=== PATIENT | female | born 1995 | race Caucasian/White ===

== ENCOUNTER 2017-11-14 09:24 | Emergency (ER) | payer OTHER ==
[2017-11-14] MEDS ORDERED: GASTROGRAFIN SOLUTION 30ML (Q9963) As Ordered (10:14)
[2017-11-14] MEDS: ONDANSETRON 4MG/2ML VIAL (J2405) IV (10:20)
[2017-11-14] MEDS: MORPHINE 2 MG/ML 1ML SYRINGE IV (10:20)
[2017-11-14] MEDS: NS 500 ML IV (10:21)
[2017-11-14] MEDS: GASTROGRAFIN SOLUTION 30ML PO (10:25)
[2017-11-14 10:28] LABS: BASO % 0.3 % (0.0-1.0); EOS # 0.2 10^3/uL (0.0-0.50); EOS % 2.5 % (0.0-3.0); IMMATURE GRANULOCYTE % 0.3 % (0-0); LYMPH # 1.2 10^3/uL (1.5-6.5); LYMPH % 19.9 % (24.0-44.0); MEAN CORPUSCULAR HEMOGLOBIN 28.6 pg (27.0-33.0); MEAN CORPUSCULAR HGB CONC 32.6 g/dl (32.0-36.5); MEAN CORPUSCULAR VOLUME 87.7 fl (80.0-96.0); MONO # 0.6 10^3/uL (0.0-0.8); MONO % 10.2 % (0.0-5.0); NEUTROPHILS # 4.1 10^3/uL (1.8-7.7); NEUTROPHILS % 66.8 % (36.0-66.0); PLATELET COUNT, AUTOMATED 256 10^3/uL (150-450); RED CELL DISTRIBUTION WIDTH 12.8 % (11.5-14.5); WHITE BLOOD COUNT 6.1 10^3/uL (4.0-10.0)
[2017-11-14] MEDS: GASTROGRAFIN SOLUTION 30ML (Q9963) PO (10:55)
[2017-11-14 11:01] LABS: ALBUMIN 3.7 GM/DL (3.2-5.2); ALBUMIN/GLOBULIN RATIO 1.06 (1.00-1.93); ALKALINE PHOSPHATASE 66 U/L (45-117); ALT/SGPT 23 U/L (12-78); ANION GAP 7 MEQ/L (8-16); AST/SGOT 18 U/L (7-37); BILIRUBIN,DIRECT < 0.1 MG/DL (0.0-0.2); BILIRUBIN,TOTAL 0.2 MG/DL (0.2-1.0); BLOOD UREA NITROGEN 10 MG/DL (7-18); CALCIUM LEVEL 8.4 MG/DL (8.5-10.1); CARBON DIOXIDE LEVEL 26 MEQ/L (21-32); CHLORIDE LEVEL 107 MEQ/L (98-107); CREATININE FOR GFR 0.55 MG/DL (0.55-1.02); GLUCOSE, FASTING 99 MG/DL (70-105); SODIUM LEVEL 140 MEQ/L (136-145); TOTAL PROTEIN 7.2 GM/DL (6.4-8.2)
[2017-11-14] MEDS ORDERED: ISOVUE-370 76% 100ML VIAL (Q9967) As Ordered (11:34)
== END 2017-11-14 12:48 | disposition home or self-care (01) ==
LOC: M ED 09:24
DX: R10.31 Right lower quadrant pain (principal); R11.0 Nausea; N92.6 Irregular menstruation, unspecified; Z79.3 Long term (current) use of hormonal contraceptives
CPT/HCPCS: Q9963

== ENCOUNTER → 2019-02-10 | Outpatient (CLI) | payer OTHER ==
[~2019-02-10] MED LIST: ZOFR4TAB14 PO; [UNRECOGNIZED DRUG - CODE]
== END ==
LOC: M LAB 11:37
PROVIDERS: ATTEND Advanced Practice Midwife
DX: Z12.4 Encounter for screening for malignant neoplasm of cervix (principal); N91.1 Secondary amenorrhea

== ENCOUNTER → 2019-02-17 | Outpatient (CLI) | payer OTHER | LOC: M LAB 11:41 | PROVIDERS: ATTEND Advanced Practice Midwife | DX: O02.1 Missed abortion (principal) ==

== ENCOUNTER 2019-02-18 11:26 | Day surgery (SDC) | payer OTHER ==
[~2019-02-18] VITALS: Ht 165.1 cm; Wt 119.7 kg
[2019-02-18 11:47] LABS: HEMATOCRIT 40.4 % (36.0-47.0); HEMOGLOBIN 13.2 g/dl (12.0-15.5); MEAN CORPUSCULAR HEMOGLOBIN 29.1 pg (27.0-33.0); MEAN CORPUSCULAR HGB CONC 32.7 g/dl (32.0-36.5); PLATELET COUNT, AUTOMATED 273 10^3/uL (150-450); RED BLOOD COUNT 4.54 10^6/uL (4.00-5.40); WHITE BLOOD COUNT 6.9 10^3/uL (4.0-10.0)
[2019-02-18] MEDS ORDERED: LIDOCAINE 1% SDV INJ 30 ML VIAL As Ordered ONE (13:03)
[2019-02-18] MEDS ORDERED: MIDAZOLAM INJ 2 MG/2 ML VIAL (J2250) As Ordered ONE (13:05)
[2019-02-18] MEDS ORDERED: PROPOFOL 200 MG/20 ML VIAL As Ordered ONE ×2 (13:05→13:50)
[2019-02-18] MEDS ORDERED: ONDANSETRON 4MG/2ML VIAL (J2405) As Ordered ONE (13:05)
[2019-02-18] MEDS ORDERED: dexameTHASONE 4 MG/ML 1ML VIAL (J1100) As Ordered ONE (13:05)
[2019-02-18] MEDS ORDERED: fentaNYL 100 MCG/2 ML INJECTION (J3010) As Ordered ONE (13:05)
[2019-02-18] MEDS ORDERED: LIDOCAINE 2% INJ 100 MG/5 ML SDV (FOR ANES.) As Ordered ONE (13:05)
[2019-02-18] MEDS ORDERED: KETOROLAC 60 MG/2 ML VIAL (J1885) As Ordered ONE (13:45)
[2019-02-18 14:25] VITALS: BP 120/74
[2019-02-18] MEDS ORDERED: NORCO, ANEXSIA 5/325MG TABLET (HYDROcodone/ACETAMINOPHEN) As Ordered ONE (14:44)
[2019-02-18] MEDS ORDERED: LR 1,000 ML IV SCH ×2 (15:00→15:30)
[2019-02-18] MEDS ORDERED: NORCO, ANEXSIA 5/325MG TABLET (HYDROcodone/ACETAMINOPHEN) PO PRN (15:00)
[2019-02-18] MEDS ORDERED: fentaNYL 100 MCG/2 ML INJECTION (J3010) IV PRN (15:00)
[2019-02-18] MEDS ORDERED: ONDANSETRON 4MG/2ML VIAL (J2405) IV PRN (15:00)
[2019-02-18] MEDS ORDERED: ACETAMINOPHEN 500 MG TAB As Ordered ONE (15:21)
[2019-02-18] MEDS ORDERED: DOXYCYCLINE HYCLATE 100 MG TAB As Ordered ONE (15:21)
[2019-02-18] MEDS ORDERED: DOXYCYCLINE HYCLATE 100 MG TAB PO ONE (15:30)
[2019-02-18] MEDS ORDERED: ACETAMINOPHEN 500 MG TAB PO ONE (15:30)
--- NOTE | 2019-02-19 10:21 | RO ---
DATE OF OPERATION: 02/18/2019 PREOPERATIVE DIAGNOSIS: Embryonic demise. POSTOPERATIVE DIAGNOSIS: Embryonic demise. PROCEDURE: Suction dilation, evacuation, and curettage (D, E, and C). SURGEON: Devendra Daugherty MD FACULTY NEUROPSYCHOLOGIST: ANESTHESIA: Local with sedation. ESTIMATED BLOOD LOSS: Minimal. URINE OUTPUT: FINDINGS: Moderate amount of products of conception. DESCRIPTION OF PROCEDURE: Operative summary: The patient taken to the operating room, where intravenous (IV) sedation was given. She was prepped and draped in sterile fashion in the dorsal lithotomy position. A speculum was placed in the vagina. The anterior lip of the cervix was grasped with a tenaculum. The cervix was injected circumferentially with 16 mL of 1% lidocaine. The cervix was dilated with taper dilators. A #8-mm suction curette was placed through the internal os. The suction device was activated, and the curette was gently rotated until products of conception were noted coming through the suction tubing. Sharp curettage was performed. The uterine cavity was deemed to be empty. All instruments were removed. Sponge and instrument counts were correct.
--- NOTE | 2019-02-20 13:38 | RO ---
DATE OF PROCEDURE: 02/18/2019 PREOPERATIVE DIAGNOSIS: Embryonic demise. POSTOPERATIVE DIAGNOSIS: Embryonic demise. PROCEDURE: Dilation, evacuation, and curettage (D, E and C). SURGEON: Dr. Devendra Daugherty POLICE LIEUTENANT: ANESTHESIA: Local with sedation. ESTIMATED BLOOD LOSS: Minimal. FINDINGS: Moderate amount of products of conception. OPERATIVE SUMMARY: The patient was taken to the operating room where IV sedation was given. She was prepped and draped in a sterile fashion in dorsal lithotomy position. A speculum was placed in the vagina. The anterior lip of the cervix was grasped with a tenaculum. Cervix was injected circumferentially with a total of 16 mL of 1% lidocaine. The cervix was dilated with tapered dilators. A #8 mm suction curette was placed through the internal os. The suction device was activated, the curette was gently rotated until products of conception were noted coming through the suction tubing. Sharp curettage was performed. Good hemostasis was noted. All instruments were removed. Sponge and instrument counts were correct.
== END 2019-02-18 15:45 | disposition home or self-care (01) ==
LOC: M SDC 11:26
PROVIDERS: ATTEND Specialist
DX: O02.1 Missed abortion (principal); Z88.0 Allergy status to penicillin; Z88.1 Allergy status to other antibiotic agents; Z88.2 Allergy status to sulfonamides
CPT/HCPCS: 36415; 59820; 85027; 86850; 86900; 86901; 88305; J1100; J1885; J2250; J2405; J3010

== ENCOUNTER → 2019-04-22 | Outpatient (REF) | payer OTHER | LOC: M LAB REF 10:59 | PROVIDERS: ATTEND Physician Assistant | DX: N39.0 Urinary tract infection, site not specified (principal) ==

== ENCOUNTER → 2019-05-09 | Outpatient (CLI) | payer OTHER | LOC: M LAB 09:08 | PROVIDERS: ATTEND Advanced Practice Midwife | DX: N91.2 Amenorrhea, unspecified (principal) ==

== ENCOUNTER → 2019-05-11 | Outpatient (CLI) | payer OTHER | LOC: M LAB 08:35 | PROVIDERS: ATTEND Advanced Practice Midwife | DX: N91.2 Amenorrhea, unspecified (principal) ==

== ENCOUNTER → 2019-05-26 | Outpatient (CLI) | payer OTHER ==
[2019-05-26 09:42] LABS: BASO % 0.3 % (0.0-1.0); EOS # 0.1 10^3/uL (0.0-0.50); EOS % 0.8 % (0.0-3.0); HEMATOCRIT 38.2 % (36.0-47.0); HEMOGLOBIN 12.7 g/dl (12.0-15.5); LYMPH # 1.6 10^3/uL (1.5-6.5); LYMPH % 21.2 % (24.0-44.0); MEAN CORPUSCULAR HEMOGLOBIN 29.3 pg (27.0-33.0); MEAN CORPUSCULAR HGB CONC 33.2 g/dl (32.0-36.5); MEAN CORPUSCULAR VOLUME 88.2 fl (80.0-96.0); MONO # 0.5 10^3/uL (0.0-0.8); MONO % 6.2 % (0.0-5.0); NEUTROPHILS # 5.5 10^3/uL (1.8-7.7); PLATELET COUNT, AUTOMATED 247 10^3/uL (150-450); RED BLOOD COUNT 4.33 10^6/uL (4.00-5.40); WHITE BLOOD COUNT 7.7 10^3/uL (4.0-10.0)
[2019-05-26 11:12] LABS: CHLAMYDIA DNA AMPLIFICATION NEGATIVE (NEGATIVE); GC DNA AMPLIFICATION NEGATIVE (NEGATIVE)
[2019-05-27 11:36] LABS: HEPATITIS C VIRUS ABY INDEX 0.1 INDEX (<0.8); HIV 1&2 SCREEN CENTAUR NEGATIVE (NEGATIVE); RUBELLA IgG QUALITATIVE IMMUNE (IMMUNE)
== END ==
LOC: M LAB 08:39
PROVIDERS: ATTEND Advanced Practice Midwife
DX: Z36.89 Encounter for other specified antenatal screening (principal); Z3A.08 8 weeks gestation of pregnancy

== ENCOUNTER → 2019-06-03 | Outpatient (REF) | payer OTHER | LOC: M LAB REF 12:19 | PROVIDERS: ATTEND Physician Assistant | DX: N39.0 Urinary tract infection, site not specified (principal) ==

== ENCOUNTER → 2019-07-09 | Outpatient (CLI) | payer OTHER | LOC: M LAB 10:45 | PROVIDERS: ATTEND Advanced Practice Midwife | DX: Z34.81 Encounter for supervision of other normal pregnancy, first trimester (principal); Z3A.00 Weeks of gestation of pregnancy not specified ==

== ENCOUNTER → 2019-07-22 | Outpatient (CLI) | payer OTHER ==
--- NOTE | 2019-07-23 09:15 | REP ---
Clinical: Anatomical evaluation. Comparison: None . Findings: Examination demonstrates a single live intrauterine in breech presentation. motion is identified by technologist. Placenta is noted posterior and grade zero with evidence for placenta previa. Amniotic fluid volume is normal. Cervix measures 3.9 cm in length and appears closed. No evidence for nuchal cord. Gestational age by LMP 17 weeks 6 days with [facility] 12/24/2019 . Gestational age by current measurements 18 weeks 2-day with [facility] 12/21/2019 . FHR equals 156 beats per minute. BPD 3.8 cm 17 weeks 3 day HC 14.9 cm 18 weeks 0 days AC 12.9 cm 18 weeks 3 day FL 2.8 cm 18 weeks 3 days HL 2.7 cm 18 weeks 6 days HC/AC ratio 1.15 Estimated weight 235 grams ( 64th percentile). Anatomical assessment demonstrates normal structures including cranium, choroid plexus, cavum, cerebellum/posterior fossa, diaphragm, stomach, three-vessel cord, kidneys/bladder, spine, and extremities. Limited evaluation of the facial features, lungs, heart/ventricular outflow tract, and cord insertion site. Impression: 1. Posterior placenta with placenta previa. 2. Anatomical limitations as noted above warrant reevaluation and follow-up. Electronically Signed by Luther Reyez MD 07/23/2019 09:07 A
== END ==
LOC: M RAD 12:58
PROVIDERS: ATTEND Advanced Practice Midwife
DX: Z34.82 Encounter for supervision of other normal pregnancy, second trimester (principal); Z3A.18 18 weeks gestation of pregnancy

== ENCOUNTER → 2019-08-19 | Outpatient (CLI) | payer OTHER ==
--- NOTE | 2019-08-20 02:43 | REP ---
Clinical: Anatomical evaluation. Comparison: 07/22/2019 . Findings: Examination demonstrates a single live intrauterine in cephalic presentation. motion is identified by technologist. Placenta is noted posterior and grade zero with evidence for placenta previa covering the closed internal os. Amniotic fluid volume is normal. Cervix measures 4.2 cm in length and appears closed. No evidence for nuchal cord. Gestational age by LMP 22 weeks 1 day with [facility] 12/22/2019 . Gestational age by current measurements 22 weeks 0 days with [facility] 12/23/2019 FHR equals the 150 beats per minute. Estimated weight 475 grams ( 45th percentile). Anatomical assessment demonstrates normal structures including cranium, choroid plexus, cavum, cerebellum/posterior fossa, facial features, lungs, diaphragm, stomach, cord insertion/three-vessel cord, kidneys/bladder, spine, and extremities. Incomplete evaluation of the heart and cardiac ventricular outflow tracts. Echogenic focus within the left cardiac ventricle likely prominent chordae tendineae. Impression: 1. Single live intrauterine in cephalic presentation demonstrating appropriate interval growth. 2. Posterior placenta with placenta previa. Cervix measures 4.2 cm in length and appears closed. 3. Anatomical limitations as noted above. Electronically Signed by Luther Reyez MD 08/20/2019 02:34 A
== END ==
LOC: M RAD 12:45
PROVIDERS: ATTEND Advanced Practice Midwife
DX: O09.212 Supervision of pregnancy with history of pre-term labor, second trimester (principal); Z3A.22 22 weeks gestation of pregnancy; O44.02 Complete placenta previa NOS or without hemorrhage, second trimester

== ENCOUNTER → 2019-09-17 | Outpatient (CLI) | payer OTHER ==
--- NOTE | 2019-09-18 14:01 | REP ---
Clinical: Anatomical evaluation. Comparison: 08/19/2019 . Findings: Examination demonstrates a single live intrauterine in cephalic presentation. motion is identified by technologist. Placenta is noted posterior and low-lying approximately 5 mm from the closed internal os without evidence for abruption. Placenta is grade 0. Amniotic fluid volume is normal. Cervix measures 3.7 cm in length and appears closed. No evidence for nuchal cord. Gestational age by LMP 26 weeks 2 days with [facility] 12/22/2019 . Gestational age by current measurements 26 weeks 6 days with [facility] 12/18/2019 . FHR equals 153 beats per minute. Estimated weight 966 grams ( 52nd percentile). Anatomical assessment demonstrates normal structures including cranium, choroid plexus, cavum, facial features, lungs, four-chamber heart/ventricular outflow tracts, diaphragm, stomach, cord insertion/three-vessel cord, kidneys/bladder, spine, and extremities. Impression: 1. Single live intrauterine in cephalic presentation demonstrating appropriate interval growth. 2. Low-lying grade zero placenta 5 mm from the closed internal os. 3. In conjunction with prior examination anatomical assessment is complete and normal. Electronically Signed by Luther Reyez MD 09/18/2019 01:52 P
== END ==
LOC: M RAD 11:50
PROVIDERS: ATTEND Advanced Practice Midwife
DX: Z34.82 Encounter for supervision of other normal pregnancy, second trimester (principal)

== ENCOUNTER → 2019-10-05 | Outpatient (CLI) | payer OTHER ==
[2019-10-05 12:13] LABS: HEMATOCRIT 34.2 % (36.0-47.0); HEMOGLOBIN 10.8 g/dl (12.0-15.5); MEAN CORPUSCULAR HEMOGLOBIN 28.3 pg (27.0-33.0); MEAN CORPUSCULAR HGB CONC 31.6 g/dl (32.0-36.5); MEAN CORPUSCULAR VOLUME 89.5 fl (80.0-96.0); PLATELET COUNT, AUTOMATED 249 10^3/uL (150-450); RED BLOOD COUNT 3.82 10^6/uL (4.00-5.40); WHITE BLOOD COUNT 9.8 10^3/uL (4.0-10.0)
== END ==
LOC: M LAB 09:30
PROVIDERS: ATTEND Advanced Practice Midwife
DX: O99.212 Obesity complicating pregnancy, second trimester (principal)

== ENCOUNTER → 2019-11-06 | Outpatient (CLI) | payer OTHER ==
--- NOTE | 2019-11-06 12:34 | REP ---
OB ULTRASOUND: Real-time sonographic evaluation of the gravid uterus performed. Transabdominal and endovaginal technique is utilized. There is a single intrauterine gestation with an estimated gestational age 3 weeks 3 days, EDC 12/22/2019. Today's measurements indicate appropriate growth. Biometry and Growth: BPD 81 mm = 32 weeks 4 days, 39th percentile HC 295 mm = 32 weeks 4 days, 38th percentile AC 288 mm = 32 weeks 6 days, 44th percentile FL 65 mm = 33 weeks 5 days, 55th percentile HC/AC ratio 1.03 within normal range. Estimated weight 2102 grams 38th percentile. anatomy today includes stomach, three-vessel cord, kidneys and spine and bladder, which are all grossly unremarkable. Cervical length: Closed and measures 3.7 cm in length. heart rate: 141 beats per minute. position: Vertex. Placenta: Posterior and grade 1-2 with no previa or abruption. The placenta appears to lie approximately 2.2 cm from the internal cervical os. Amniotic fluid: Within normal limits EDNA 10.5 within normal range of 8.2 to 24.6. S/D ratio: 22 within normal range of 2.0 to 3.0. RI: 0.65 within normal range of 0.59 to 0.75. Electronically Signed by Sy Aparicio MD 11/09/2019 04:11 P
== END ==
LOC: M RAD 09:00
PROVIDERS: ATTEND Advanced Practice Midwife
DX: O44.43 Low lying placenta NOS or without hemorrhage, third trimester (principal)

== ENCOUNTER → 2019-12-01 | Outpatient (REF) | payer OTHER | LOC: M SFHCWAGY 12:50 | PROVIDERS: ATTEND Advanced Practice Midwife | DX: Z34.93 Encounter for supervision of normal pregnancy, unspecified, third trimester (principal) ==

== ENCOUNTER 2019-12-29 08:29 | Inpatient (IN) | payer OTHER ==
[2019-12-29] VITALS (19 sets, daily range): BP systolic 95–139; BP diastolic 50–87
[~2019-12-29] VITALS: Ht 165.1 cm; Wt 124.1 kg
[2019-12-29] MEDS ORDERED: PRENTAB9 PO (08:50)
[2019-12-29] MEDS ORDERED: LACTATED RINGER'S 1000 ML IV STA (09:27)
[2019-12-29] MEDS: LR 1,000 ML IV SCH ×2 (09:27→17:27)
[2019-12-29 09:56] LABS: HEMATOCRIT 37.5 % (36.0-47.0); HEMOGLOBIN 11.8 g/dl (12.0-15.5); MEAN CORPUSCULAR HEMOGLOBIN 26.9 pg (27.0-33.0); MEAN CORPUSCULAR HGB CONC 31.5 g/dl (32.0-36.5); MEAN CORPUSCULAR VOLUME 85.6 fl (80.0-96.0); PLATELET COUNT, AUTOMATED 229 10^3/uL (150-450); RED BLOOD COUNT 4.38 10^6/uL (4.00-5.40); WHITE BLOOD COUNT 10.6 10^3/uL (4.0-10.0)
[2019-12-29] MEDS: miSOPROStol 50 MCG 1/2 TAB (S0191) SL SCH ×3 (10:01→18:00)
[2019-12-29] MEDS ORDERED: SLF 3 ML SYR IV PRN (14:15)
[2019-12-29] MEDS: SLF 3 ML SYR IV SCH (14:44)
[2019-12-29] MEDS ORDERED: OXYTOCIN DRIP 30 UNITS in IV 1 EA IV SCH (18:45)
[2019-12-29] MEDS ORDERED: PROMETHAZINE INJ 25 MG/ML VIAL (J2550) IV ONE (19:15)
[2019-12-29] MEDS ORDERED: BUTORPHANOL 2 MG/ML INJ (J0595) IV ONE (19:15)
[2019-12-30] VITALS (59 sets, daily range): BP systolic 88–175; BP diastolic 50–87
[2019-12-30] MEDS ORDERED: PROMETHAZINE INJ 25 MG/ML VIAL (J2550) IV ONE (01:00)
[2019-12-30] MEDS ORDERED: BUTORPHANOL 2 MG/ML INJ (J0595) IV ONE (01:00)
[2019-12-30] MEDS: LR 1,000 ML IV SCH ×6 (01:27→19:00)
[2019-12-30] MEDS: SLF 3 ML SYR IV SCH (06:00)
[2019-12-30] MEDS ORDERED: FENTANYL 2MCG/ML ROPIVACAINE 0.2% IN 0.9% NACL 100ML IVBAG As Ordered ONE (08:39)
[2019-12-30] MEDS ORDERED: diphenhydrAMINE INJ 50MG/ML VIAL (J1200) IV PRN ×2 (10:45→19:00)
[2019-12-30] MEDS ORDERED: EPIDURAL COMMENT XX SCH (10:45)
[2019-12-30] MEDS ORDERED: FENTANYL/ROPIVACAINE/NACL BAG 100 ML EPIDURAL SCH (10:45)
[2019-12-30] MEDS ORDERED: ONDANSETRON 4MG/2ML VIAL (J2405) IV PRN ×5 (10:45→19:00)
[2019-12-30] MEDS ORDERED: REFRIGERATOR IV KEYS XX PRN (10:45)
[2019-12-30] MEDS ORDERED: NALOXONE INJ 0.4 MG/1 ML VIAL (J2310) IV PRN ×3 (10:45→19:00)
[2019-12-30] MEDS ORDERED: EPIDURAL/PCA KEYS XX PRN (10:45)
--- NOTE | 2019-12-30 10:47 | IPNPDOC ---
Obstetrical Progress Note Date of Service Dec 30, 2019 Subjective Patient reports she is comfortable with her epidural. Objective Vital Signs Date Time Temp Pulse Resp B/P (MAP) Pulse Ox O2 Delivery O2 Flow Rate FiO2 12/30/19 06:30 98.2 107 130/60 (83) 98.2 12/30/19 02:19 15 Assessment Heart Rate (FHR): 140 Variability: Moderate Accelerations: Positive Decelerations: Variable Heart Rate Tracing: Category II Tocometer Contractions: Yes Frequency: regular, other (every 2 to 3 minutes) Strength: palpated as moderate Sterile Vaginal Examination Dilation: 5 cm (5-6 cm) Effacement (%): 80% Station: 0 Cervical Consistency: Soft Cervical Position: Anterior Postion/Presentation: Cephalic presentation Assessment and Plan Age: 24 : 2 Term: 0 Pre-term: 0 Abortions: 0 Livin EGA at Admission: 41 Weeks & Days 41.1 Status: Reassuring Group B Streptococcus: Negative Additional Comments IV Pitocin at 12 mu/min. FSE and IUPC inserted due to difficulty with monitoring patient. Consider decreasing IV Pitocin if variables continue. Variables are not deep. Patient spontaneously ruptured to a large amount of clear fluid prior to epidural. KRISTY MACDONALD CNM Dec 30, 2019 10:47
[2019-12-30] MEDS: LACTATED RINGER'S 1000 ML IV PRN ×2 (10:49→11:48)
[2019-12-30] MEDS: ePHEDrine SULFATE 25 MG/5 ML(5MG/ML) SYRINGE IV PRN ×3 (10:57→11:06)
[2019-12-30] MEDS ORDERED: ePHEDrine SULFATE 25 MG/5 ML(5MG/ML) SYRINGE IV PRN (12:00)
[2019-12-30] MEDS ORDERED: AZITHROMYCIN INJ 500 MG, VIAL MATE ADAPTER 1 EACH in D5W 250 ML IV ONE (16:30)
--- NOTE | 2019-12-30 16:30 | IPNPDOC ---
Obstetrical Progress Note Date of Service Dec 30, 2019 Subjective Patient is comfortable with her epidural. Objective Vital Signs Date Time Temp Pulse Resp B/P (MAP) Pulse Ox O2 Delivery O2 Flow Rate FiO2 12/30/19 13:59 81 18 112/53 (72) 12/30/19 11:49 97.7 Assessment Heart Rate (FHR): 140 Variability: Moderate Accelerations: Positive Decelerations: Early, Variable Heart Rate Tracing: Category II Tocometer Frequency: regular, other (2 to 4 minutes) Sterile Vaginal Examination Dilation: 5 cm (5-6) Effacement (%): 90% Cervical Position: Anterior Postion/Presentation: Cephalic presentation Assessment and Plan Weeks & Days 41.1 weeks today Status: Reassuring Group B Streptococcus: Negative Anticipate: Section Additional Comments Reviewed with patient that she is not having adequate contractions despite being on 20 mu/min for several hours with an IUPC in place. She has made minimal to no cervical change in over 6 hours. Reviewed options with patient including proceeding to section or continue with induction. Reviewed risk, benefits and alternatives with patient. She and her family desire to proceed with section. Dr. Daugherty notified and will be over for section. KRISTY MACDONALD CNM Dec 30, 2019 16:30
[2019-12-30] MEDS ORDERED: BICITRA 30ML SOLN UDC As Ordered ONE (16:43)
[2019-12-30] MEDS ORDERED: CLINDAMYCIN 300 MG in IV 1 EA IV ONE (17:00)
[2019-12-30] MEDS ORDERED: GENTAMICIN 100 MG in IV 1 EA IV ONE (17:00)
[2019-12-30] MEDS ORDERED: OXYC1TAB23 PO (17:13)
[2019-12-30] MEDS ORDERED: LIDOCAINE 2% W/EPIN INJ 20ML **PRES FREE As Ordered ONE (17:14)
[2019-12-30] MEDS ORDERED: OXYTOCIN INJ 10 UNITS/ML VIAL (J2590) As Ordered ONE ×2 (17:14→17:18)
[2019-12-30] MEDS ORDERED: ESMOLOL INJ 100MG/10ML VIAL As Ordered ONE (17:49)
[2019-12-30] MEDS ORDERED: PHENYLephrine HCL 500 MCG/5 ML (100MCG/ML) SYRINGE (J2370) As Ordered ONE (17:49)
[2019-12-30] MEDS ORDERED: ONDANSETRON 4MG/2ML VIAL (J2405) As Ordered ONE (17:56)
[2019-12-30] MEDS ORDERED: dexameTHASONE 4 MG/ML 1ML VIAL (J1100) As Ordered ONE (17:56)
[2019-12-30] MEDS ORDERED: MORPHINE PRES-FREE INJ 10 MG/10 ML VIAL (J2274) As Ordered ONE (18:10)
[2019-12-30] MEDS ORDERED: LR 1,000 ML IV SCH (18:25)
[2019-12-30] MEDS ORDERED: OXYTOCIN DRIP 30 UNITS in IV 1 EA IV SCH ×2 (18:25→19:00)
[2019-12-30] MEDS ORDERED: RHOGAM 300 MCG (1500 IU) INJ (J2790) IM SCH ×2 (18:30)
[2019-12-30] MEDS ORDERED: MEASLES,MUMPS,RUBELLA VACCINE INJ (MMR-II) (90707) SC SCH ×2 (18:30)
[2019-12-30] MEDS ORDERED: PERCOCET 5MG/325MG TAB PO PRN ×2 (18:30)
[2019-12-30] MEDS ORDERED: KETOROLAC 30 MG/ML VIAL (J1885) IV SCH (18:30)
[2019-12-30] MEDS ORDERED: DOCUSATE SODIUM 100 MG CAP PO PRN (18:30)
[2019-12-30] MEDS ORDERED: OXYTOCIN 30 UNITS IN 0.9% NaCl 500ML IV BAG (J2590) As Ordered ONE (18:31)
[2019-12-30] MEDS ORDERED: KETOROLAC 60 MG/2 ML VIAL (J1885) As Ordered ONE (18:35)
[2019-12-30] MEDS ORDERED: METOCLOPRAMIDE INJ 10MG/2ML VIAL (J2765) IV PRN (19:00)
[2019-12-30] MEDS ORDERED: fentaNYL 100 MCG/2 ML INJECTION (J3010) IV PRN (19:00)
[2019-12-30] MEDS ORDERED: NALBUPHINE HCL 10 MG/ML AMP (J2300) IV PRN (19:00)
[2019-12-30] MEDS: PERCOCET 5MG/325MG TAB PO PRN (20:27)
[2019-12-30] MEDS: METHYLERGONOVINE MALEATE 0.2 MG TAB PO PRN (22:29)
[2019-12-30] MEDS ORDERED: OXYTOCIN DRIP 30 UNITS in IV 1 EA IV STA (23:53)
[2019-12-31] VITALS (12 sets, daily range): BP systolic 84–104; BP diastolic 42–60
[2019-12-31] MEDS: KETOROLAC 30 MG/ML VIAL (J1885) IV SCH ×3 (01:02→14:53)
[2019-12-31] MEDS: PERCOCET 5MG/325MG TAB PO PRN ×2 (01:06→14:54)
[2019-12-31] MEDS: METHYLERGONOVINE MALEATE 0.2 MG TAB PO PRN ×3 (02:28→12:25)
[2019-12-31] MEDS: LR 1,000 ML IV SCH ×3 (02:28→19:00)
[2019-12-31] MEDS ORDERED: BICITRA 30ML SOLN UDC PO SCH (06:00)
--- NOTE | 2019-12-31 07:28 | RO ---
DATE OF PROCEDURE: 12/30/2019 PREPROCEDURE DIAGNOSIS: Term , arrest of dilation. POSTPROCEDURE DIAGNOSIS: Term , arrest of dilation. PROCEDURE: Primary low transverse section. SURGEON: Dr. Devednra Daugherty PURCHASING ENGINEER: Nicole Up CNM. ANESTHESIA: Epidural. ESTIMATED BLOOD LOSS: 500 mL. URINE OUTPUT: 75 mL. FINDINGS: 9-[id number]-47-ounce, 3610 gram female . Apgars 8 and 9. Right occiput transverse position with an extended head. Normal uterus, fallopian tubes and ovaries. DESCRIPTION OF PROCEDURE: Patient taken to the operating room where epidural anesthesia was adequate. Fiore catheter was already in place. Pfannenstiel skin incision was made with a scalpel and carried through to the fascia. The fascia was nicked and extended. The fascia was dissected off the rectus muscle. Peritoneal cavity was entered, bladder flap was created. The Mobius retractor was placed. Curvilinear incision was made in the lower uterine segment until clear fluid was noted. This was extended manually. Infant delivered in the vertex position. The shoulders delivered with ease. The cord was doubly clamped and cut. The infant was handed off to the awaiting nurse. The placenta was expressed. The uterus was exteriorized, cleared of clots and debris. Uterine incision closed with 0 Vicryl in a running locked fashion. A second imbricating layer of 0 Vicryl was placed. Uterus placed back into the abdominal cavity. The Mobius retractor was removed. The perineum was closed with #2-0 Vicryl, fascia closed with 0 Vicryl in a running fashion. The deep layer was irrigated and closed with #2-0 chromic. Skin was closed with #4-0 Monocryl subcuticular sutures. Sponge, instrument and needle counts were correct. JUANITA Pinzon assisted throughout the procedure. She helped create each layer of the incision. She helped create the hysterotomy and deliver the fetus and close all layers.
[2019-12-31 07:48] LABS: MEAN CORPUSCULAR HEMOGLOBIN 27.7 pg (27.0-33.0); MEAN CORPUSCULAR HGB CONC 31.2 g/dl (32.0-36.5); MEAN CORPUSCULAR VOLUME 88.7 fl (80.0-96.0); PLATELET COUNT, AUTOMATED 169 10^3/uL (150-450); RED BLOOD COUNT 2.31 10^6/uL (4.00-5.40); WHITE BLOOD COUNT 18.8 10^3/uL (4.0-10.0)
[2019-12-31 07:50] LABS: HEMATOCRIT 20.5 % (36.0-47.0)
[2019-12-31 07:53] LABS: HEMOGLOBIN 6.4 g/dl (12.0-15.5)
--- NOTE | 2019-12-31 07:59 | IPNPDOC ---
Progress Note Date of Service: Dec 31, 2019 Day#: 1 Progress Note SUBJECT: Mariza Muñoz is a 24-year-old 2 now Para 0-0-1-1 status post delivery for arrest of descent at 41-1/7 weeks' at approximately 1755 hours on 12/30/2019 of a female 7 pounds 15 ounces (3610 grams), doing well post- op day # 1. Patient had increased bleeding overnight and was given additional Pitocin and Methergine. She is tolerating regular diet. Breast feeding without issue. Reports lochia is like a normal period. Patient is due to ambulate and due to void. Reports some cramping with . Denies any pain. OBJECTIVE: VITAL SIGNS: Within normal limits, afebrile. Alert and oriented times three. Breath sounds clear to auscultation. Heart rate: Regular rate and rhythm, no murmurs, rubs or gallops. Abdomen: Soft. Dressing intact with scant drainage. Minimal lochia. ASSESSMENT: Post-op day 1, increased bleeding overnight managed with Methergine series and IV Pitocin at 125 ml/hr. PLAN: 1. Tylenol and Motrin for pain. 2. Encourage breast feeding and ambulation. 3. Monitor bleeding. 4. Due to void. 5. Continue routine post-op care. VS, I&O, 24H, Fishbone Vital Signs/I&O Vital Signs Date Time Temp Pulse Resp B/P (MAP) Pulse Ox O2 Delivery O2 Flow Rate FiO2 12/31/19 04:36 98.1 102 20 98/52 (67) 100 Room Air I&O- Last 24 Hours up to 6 AM 12/31/19 06:00 Intake Total 5906 ml Output Total 2025 ml Balance 3881 ml Laboratory Data CBC/BMP KRISTY MACDONALD CNM Dec 31, 2019 07:59
[2019-12-31] MEDS: PRENATAL VITAMINS CHEWABLE TABLET PO SCH (08:57)
[2019-12-31] MEDS ORDERED: PRENATAL VITAMINS CHEWABLE TABLET PO SCH (09:00)
[2019-12-31 20:12] LABS: HEMATOCRIT 22.4 % (36.0-47.0); HEMOGLOBIN 7.3 g/dl (12.0-15.5); MEAN CORPUSCULAR HEMOGLOBIN 28.6 pg (27.0-33.0); MEAN CORPUSCULAR HGB CONC 32.6 g/dl (32.0-36.5); MEAN CORPUSCULAR VOLUME 87.8 fl (80.0-96.0); PLATELET COUNT, AUTOMATED 142 10^3/uL (150-450); RED BLOOD COUNT 2.55 10^6/uL (4.00-5.40); WHITE BLOOD COUNT 13.4 10^3/uL (4.0-10.0)
[2019-12-31] MEDS ORDERED: IBUPROFEN 800 MG TAB PO SCH (20:30)
[2019-12-31] MEDS: IBUPROFEN 800 MG TAB PO SCH (20:49)
[2020-01-01] VITALS (10 sets, daily range): BP systolic 96–126; BP diastolic 50–70
[2020-01-01] MEDS: LR 1,000 ML IV SCH (03:00)
[2020-01-01] MEDS: PERCOCET 5MG/325MG TAB PO PRN ×3 (03:47→14:47)
[2020-01-01] MEDS: IBUPROFEN 800 MG TAB PO SCH ×3 (06:36→21:15)
[2020-01-01 07:47] LABS: MEAN CORPUSCULAR HGB CONC 31.7 g/dl (32.0-36.5); MEAN CORPUSCULAR VOLUME 88.4 fl (80.0-96.0); PLATELET COUNT, AUTOMATED 145 10^3/uL (150-450); RED BLOOD COUNT 2.32 10^6/uL (4.00-5.40)
[2020-01-01 07:49] LABS: HEMATOCRIT 20.5 % (36.0-47.0); HEMOGLOBIN 6.5 g/dl (12.0-15.5)
--- NOTE | 2020-01-01 08:19 | IPNPDOC ---
Text Note Date of Service The patient was seen on 01/01/20. NOTE Evaluated patient per consult Dr Daugherty who recommended add'l 2 units PRBC Large amount of clot in toilet. Fundus firm, small amount of bleeding on pad Pt verbalized agreement to 2nd transfusion Will recheck CBC post transfusion VS,Fishbone, I+O VS, Fishbone, I+O Laboratory Tests 12/31/19 20:03 01/01/20 07:32 Vital Signs Date Time Temp Pulse Resp B/P (MAP) Pulse Ox O2 Delivery O2 Flow Rate FiO2 01/01/20 06:17 98.4 89 17 96/51 (66) 98 Room Air I&O- Last 24 Hours up to 6 AM 01/01/20 06:00 Intake Total 2205 ml Output Total 2320 ml Balance -115 ml Rozina Smith CNM Jan 01, 2020 08:19
[2020-01-01] MEDS: PRENATAL VITAMINS CHEWABLE TABLET PO SCH (08:52)
[2020-01-01] MEDS ORDERED: NS 1,000 ML IV SCH (09:00)
[2020-01-01] MEDS ORDERED: ACETAMINOPHEN TAB 650MG DOSE (2X325MG) PO ONE (09:00)
[2020-01-01] MEDS ORDERED: diphenhydrAMINE 25 MG CAP PO ONE (09:00)
[2020-01-01 16:58] LABS: HEMATOCRIT 25.4 % (36.0-47.0); HEMOGLOBIN 8.1 g/dl (12.0-15.5); MEAN CORPUSCULAR HEMOGLOBIN 28.1 pg (27.0-33.0); MEAN CORPUSCULAR HGB CONC 31.9 g/dl (32.0-36.5); MEAN CORPUSCULAR VOLUME 88.2 fl (80.0-96.0); PLATELET COUNT, AUTOMATED 156 10^3/uL (150-450); RED BLOOD COUNT 2.88 10^6/uL (4.00-5.40); WHITE BLOOD COUNT 10.8 10^3/uL (4.0-10.0)
[2020-01-01] MEDS: DOCUSATE SODIUM 100 MG CAP PO PRN (21:15)
[2020-01-02] MEDS: IBUPROFEN 800 MG TAB PO SCH ×2 (04:26→12:59)
[2020-01-02] MEDS: PERCOCET 5MG/325MG TAB PO PRN (04:26)
[2020-01-02 06:00] VITALS: BP_SYST 55
[2020-01-02 08:05] LABS: HEMATOCRIT 26.6 % (36.0-47.0); HEMOGLOBIN 8.4 g/dl (12.0-15.5); MEAN CORPUSCULAR HEMOGLOBIN 28.1 pg (27.0-33.0); MEAN CORPUSCULAR HGB CONC 31.6 g/dl (32.0-36.5); PLATELET COUNT, AUTOMATED 177 10^3/uL (150-450); RED BLOOD COUNT 2.99 10^6/uL (4.00-5.40); WHITE BLOOD COUNT 8.9 10^3/uL (4.0-10.0)
[2020-01-02] MEDS: PRENATAL VITAMINS CHEWABLE TABLET PO SCH (12:59)
[2020-01-02 14:00] VITALS: BP 121/64
[2020-01-02 17:54] VITALS: BP 118/62
[2020-01-02] MEDS ORDERED: IBUP80TA PO (17:59)
[2020-01-02] MEDS: DOCUSATE SODIUM 100 MG CAP PO PRN (18:21)
--- NOTE | 2020-01-03 08:52 | DS.PDOC ---
Discharge Summary General Date of Admission Dec 29, 2019 at 08:29 Date of Discharge 01/02/20 Attending Physician: STARR BARNEY MD Discharge Summary PROCEDURES PERFORMED DURING STAY: 1. Epidural. 2. section. 3. Transfusion of 4 units of packed red blood cells. ADMITTING DIAGNOSES: 1. Postdate induction. DISCHARGE DIAGNOSES: 1., Arrest of dilation. 2. hemorrhage. COMPLICATIONS/CHIEF COMPLAINT: . HISTORY OF PRESENT ILLNESS: This patient is a 24-year-old 2, para 0, presents at 41 weeks for induction of labor on 12/29/2019, she underwent a section for arrested dilation estimated blood loss at time of surgery is 500ml. Surgery was productive of a liveborn female , Apgars 8 and 9, weighing 7 lbs. 15 oz., Mrs. Neville had a delayed hemorrhage. On postoperative day #1 she had hemoglobin of 6.4 underwent a blood transfusion with 4units of PRBCs. . Discharge hemoglobin of 8.4 with no further bleeding. HOSPITAL COURSE: See above. DISCHARGE MEDICATIONS: Please see below. ALLERGIES: Please see below. PHYSICAL EXAMINATION ON DISCHARGE: VITAL SIGNS: Please see below. GENERAL:. Well-appearing, no acute distress ABDOMINAL EXAMINATION: Soft, appropriately tender. Fundus is below umbilicus. Incision was dressed EXTREMITIES:. Negative calf tenderness LABORATORY DATA: Please see below. ACTIVITY: As tolerated. DIET: Regular DISPOSITION: 01 Home, Self-Care. DISCHARGE INSTRUCTIONS: 1. Follow up in 6 weeks to remain on pelvic rest for 6 weeks. 3. Reports severe pain, heavy vaginal bleeding, fever or incisional issues. DISCHARGE CONDITION: Stable. Vital Signs/I&Os Vital Signs Date Time Temp Pulse Resp B/P (MAP) Pulse Ox O2 Delivery O2 Flow Rate FiO2 01/02/20 17:54 99.0 89 18 118/62 (80) 99 01/02/20 06:00 Room Air Discharge Medications Scheduled Ibuprofen (Ibuprofen) 800 Mg Tablet, 800 MG PO Q8H No.137/Iron/Folic Acd ( Vitamin Tablet) 1 Each Tablet, 1 TAB PO DAILY, (Reported) Scheduled PRN Oxycodone HCl/Acetaminophen (Oxycodone-Acetaminophen 5-325) 1 Each Tablet, 1 TAB PO TIDP PRN for pain Allergies Coded Allergies: Cephalosporins (Verified Allergy, Intermediate, RASH, 02/18/19) Penicillins (Verified Allergy, Intermediate, RASH, 02/18/19) Sulfa (Sulfonamide Antibiotics) (Verified Allergy, Intermediate, RASH, 02/18/19) sulfamethoxazole (Verified Allergy, Intermediate, RASH, 02/18/19) trimethoprim (Verified Allergy, Intermediate, RASH, 02/18/19) SASCHA MONCADA MD. Jan 03, 2020 08:52
== END 2020-01-02 18:55 | disposition home or self-care (01) | DRG 540 ==
LOC: M LDI 08:29 → M OBS 12-30 20:07
PROVIDERS: ADMIT Obstetrics & Gynecology; ATTEND Specialist
PROC: 3E0P7GC Introduction of Other Therapeutic Substance into Female Reproductive, Via Natural or Artificial Opening (ICD-10-PCS; 2019-12-29)
PROC: 10D00Z1 Extraction of Products of Conception, Low, Open Approach (ICD-10-PCS; principal; 2019-12-30 18:10)
PROC: 30233N1 Transfusion of Nonautologous Red Blood Cells into Peripheral Vein, Percutaneous Approach (ICD-10-PCS; 2019-12-31)
DX: O48.0 Post-term pregnancy (principal); E66.01 Morbid (severe) obesity due to excess calories; O99.214 Obesity complicating childbirth; Z3A.41 41 weeks gestation of pregnancy; O62.0 Primary inadequate contractions; Z37.0 Single live birth; O72.2 Delayed and secondary postpartum hemorrhage

== ENCOUNTER → 2020-09-23 | Outpatient (CLI) | payer OTHER ==
[~2020-09-23] MED LIST changes: +IBUP80TA PO; +OXYC1TAB23 PO; +PRENTAB9 PO
[2020-09-23 09:49] LABS: BASO % 0.5 % (0.0-1.0); EOS # 0.1 10^3/uL (0.0-0.5); EOS % 1.3 % (0.0-3.0); HEMATOCRIT 42.4 % (36.0-47.0); LYMPH # 1.5 10^3/uL (1.5-5.0); LYMPH % 23.7 % (24.0-44.0); MEAN CORPUSCULAR HEMOGLOBIN 25.6 pg (27.0-33.0); MEAN CORPUSCULAR HGB CONC 30.7 g/dl (32.0-36.5); MEAN CORPUSCULAR VOLUME 83.5 fl (80.0-96.0); MONO # 0.4 10^3/uL (0.0-0.8); MONO % 6.9 % (0.0-5.0); NEUTROPHILS # 4.3 10^3/uL (1.5-8.5); NEUTROPHILS % 67.3 % (36.0-66.0); PLATELET COUNT, AUTOMATED 302 10^3/uL (150-450); RED BLOOD COUNT 5.08 10^6/uL (4.00-5.40); WHITE BLOOD COUNT 6.4 10^3/uL (4.0-10.0)
[2020-09-23 10:32] LABS: ALBUMIN 3.9 GM/DL (3.2-5.2); ALT/SGPT 14 U/L (12-78); BILIRUBIN,TOTAL 0.2 MG/DL (0.2-1.0); BLOOD UREA NITROGEN 11 MG/DL (7-18); CALCIUM LEVEL 9.2 MG/DL (8.5-10.1); CARBON DIOXIDE LEVEL 28 MEQ/L (21-32); CHLORIDE LEVEL 107 MEQ/L (98-107); CHOLESTEROL LEVEL 171 MG/DL (<200); CHOLESTEROL RISK RATIO 3.352 (<5); FREE T4 1.14 NG/DL (0.76-1.46); GLOMERULAR FILTRATION RATE > 60.0 (>60); GLUCOSE, FASTING 85 MG/DL (70-100); HDL CHOLESTEROL 51 MG/DL (>40); LDL CHOLESTEROL 100 MG/DL (<100); NON-HDL-C 120 MG/DL; POTASSIUM SERUM 4.3 MEQ/L (3.5-5.1); SODIUM LEVEL 139 MEQ/L (136-145); THYROID STIMULATING HORMONE 0.949 uIU/ML (0.358-3.740); TOTAL PROTEIN 7.6 GM/DL (6.4-8.2); TRIGLYCERIDES LEVEL 100 MG/DL (<150)
== END ==
LOC: M LAB 09:13
PROVIDERS: ATTEND Nurse Practitioner Family
DX: R07.89 Other chest pain (principal)

== ENCOUNTER → 2020-11-04 | Outpatient (CLI) | payer OTHER ==
--- NOTE | 2020-11-04 09:26 | REP ---
INDICATION: RUQ PAIN. COMPARISON: . Comparison CT study of the abdomen November 14, 2017.. TECHNIQUE: Right upper quadrant sonography. FINDINGS: Scanning through the right upper quadrant of the abdomen demonstrates a normal sized, thin-walled gallbladder without evidence of stone or polyp. Common bile duct is normal measuring 0.3 cm in greatest diameter. No focal liver lesion is seen. Liver size is normal. Scan quality is inhibited some degree by limited scan windows and bowel gas. Limited visualization of the pancreas. No pancreatic abnormality is observed. No right renal abnormality is seen. There is no evidence of ascites. The right kidney measures 11.3 x 4.0 x 4.1 cm. IMPRESSION: Negative right upper quadrant sonography. <Electronically signed by Alessio Maxwell > 11/04/20 1138
== END ==
LOC: M RAD 08:37
PROVIDERS: ATTEND Nurse Practitioner Family
DX: R10.11 Right upper quadrant pain (principal)

== ENCOUNTER → 2021-11-10 | Outpatient (CLI) | payer OTHER | LOC: M PLAIMG 09:58 | PROVIDERS: ATTEND Nurse Practitioner Family | DX: M79.644 Pain in right finger(s) (principal) ==

== ENCOUNTER → 2022-09-27 | Outpatient (REF) | payer OTHER | LOC: M LAB REF 17:23 | PROVIDERS: ATTEND Nurse Practitioner Family | DX: Z01.419 Encounter for gynecological examination (general) (routine) without abnormal findings (principal) ==

== ENCOUNTER → 2022-10-25 | Outpatient (CLI) | payer OTHER | LOC: M PLALAB 16:14 | PROVIDERS: ATTEND Registered Nurse | DX: M79.642 Pain in left hand (principal) ==

== ENCOUNTER 2023-12-09 10:22 | Emergency (ER) | payer OTHER ==
[~2023-12-09] VITALS: Ht 165.1 cm; Wt 129.9 kg
[2023-12-09] MEDS ORDERED: FAMO20TA5 (10:32)
[2023-12-09 11:35] LABS: APPEARANCE, URINE HAZY (CLEAR); BACTERIA, URINE AUTO NEGATIVE (NEGATIVE); BASO % 0.4 % (0.0-1.0); BILIRUBIN, URINE AUTO NEGATIVE (NEGATIVE); BLOOD, URINE BLOOD 3+ (NEGATIVE); COLOR, URINE YELLOW (YELLOW); EOS # 0.2 10^3/uL (0.0-0.5); EOS % 3.2 % (0.0-3.0); GLUCOSE, URINE (UA) AUTO NEGATIVE (NEGATIVE); HEMATOCRIT 38.4 % (36.0-47.0); HEMOGLOBIN 12.7 g/dl (12.0-15.5); KETONE, URINE AUTO NEGATIVE (NEGATIVE); LEUKOCYTE ESTERASE, URINE AUTO NEGATIVE (NEGATIVE); LYMPH # 1.5 10^3/uL (1.5-5.0); LYMPH % 21.3 % (24.0-44.0); MEAN CORPUSCULAR HEMOGLOBIN 29.3 pg (27.0-33.0); MEAN CORPUSCULAR HGB CONC 33.1 g/dl (32.0-36.5); MEAN CORPUSCULAR VOLUME 88.5 fl (80.0-96.0); MONO # 0.4 10^3/uL (0.0-0.8); MONO % 5.6 % (2.0-8.0); MUCUS, URINE SMALL (NEGATIVE); NEUTROPHILS # 4.8 10^3/uL (1.5-8.5); NEUTROPHILS % 69.4 % (36.0-66.0); NITRITE, URINE AUTO NEGATIVE (NEGATIVE); PLATELET COUNT, AUTOMATED 260 10^3/uL (150-450); PROTEIN, URINE AUTO NEGATIVE (NEGATIVE); RBC, URINE AUTO 2 /HPF (0-3); RED BLOOD COUNT 4.34 10^6/uL (4.00-5.40); SPECIFIC GRAVITY URINE AUTO 1.019 (1.002-1.035); SQUAMOUS EPITHELIAL CELL UR AU 8 /HPF (0-6); UROBILINOGEN, URINE AUTO 0.2 mg/dL (0.0-2.0); WBC, URINE AUTO 2 /HPF (0-3)
[2023-12-09 12:28] VITALS: BP 126/77; TEMP 96.9; O2SAT 100
== END 2023-12-09 12:31 | disposition home or self-care (01) ==
LOC: M ED 10:22
DX: O20.0 Threatened abortion (principal); Z87.448 Personal history of other diseases of urinary system; Z87.59 Personal history of other complications of pregnancy, childbirth and the puerperium; Z88.0 Allergy status to penicillin; Z88.2 Allergy status to sulfonamides; Z88.8 Allergy status to other drugs, medicaments and biological substances

== ENCOUNTER → 2023-12-13 | Outpatient (REF) | payer OTHER ==
[~2023-12-13] MED LIST changes: +FAMO20TA5
== END ==
LOC: M LABWUC 12:38
PROVIDERS: ATTEND Physician Assistant Medical
DX: O20.0 Threatened abortion (principal)

== ENCOUNTER → 2024-01-15 | Outpatient (CLI) | payer OTHER | LOC: M PLALAB 09:20 | PROVIDERS: ATTEND Obstetrics & Gynecology | DX: O03.9 Complete or unspecified spontaneous abortion without complication (principal) ==

== ENCOUNTER → 2024-06-02 | Outpatient (CLI) | payer OTHER | LOC: M PLALAB 14:37 → M PLAIMG 14:37 | PROVIDERS: ATTEND Nurse Practitioner Family | DX: M79.672 Pain in left foot (principal) ==